=== PATIENT | female | born 1980 | race Hispanic/Latino ===

== ENCOUNTER 2018-06-09 07:33 | Outpatient (CLI) | payer OTHER ==
--- NOTE | 2018-06-09 09:17 | RAD ---
SINGLE VIEW OF THE ABDOMEN: Comparison: None. History: Left upper quadrant abdominal pain for two weeks. FINDINGS: Single view of the abdomen shows a nonspecific, nonobstructed bowel gas pattern. No suspicious calcif ications are seen. IMPRESSION: Unremarkable exam. POS: [facility]
--- NOTE | 2018-06-09 10:15 | ULT ---
COMPLETE ABDOMEN ULTRASOUND: HISTORY: Left upper quadrant abdominal pain. FINDINGS: The liver, spleen, pancreas, adrenal glands, and kidneys appear within normal limits. The spleen eleanor sures 8.8 cm. The common bile duct measures 2.7 mm. The right kidney measures 10.4 cm in length. T he left kidney measures 9.5 cm. The visualized aorta and IVC are within normal limits. IMPRESSION: No acute sonographic abnormality. POS: [facility]
--- NOTE | 2018-06-09 10:43 | RAD ---
CHEST TWO VIEWS: 06/09/2018 HISTORY: Cough. COMPARISON: None. FINDINGS: There are coarse areas of increased linear density in the bilateral perihilar regions. Findings exte nd into bilateral lung apices, with interstitial and ground glass opacity at the lateral and superior aspects of the right upper lobe. There is a focal area of consolidative change in the left lung ape x, with probable associated cavitation. No pleural effusion. IMPRESSION: Abnormal density in the bilateral perihilar regions and in both upper lobes, left greater than right. The finding in the left lung apex demonstrates probable cavitation. The findings are suspicious fo r multifocal infectious pneumonitis. Tuberculosis is a possibility. Clinical correlation and short- term follow-up imaging following treatment thus advised. CODE T-Dr. Morgan made aware via phone by Dr. Collins on the morning of 06/09/2018. POS: [facility]
--- NOTE | 2018-06-09 11:08 | ULT ---
TRANSABDOMINAL AND TRANSVAGINAL PELVIC ULTRASOUND: INDICATIONS: History of epigastric abdominal pain, anemia, and intermittent heavy periods. TECHNIQUE: Hauser-scale, color Doppler, and spectral Doppler images were obtained of the pelvis via a transabdomin al and transvaginal approach. FINDINGS: The uterus measured 8.7 x 4.2 x 6.5 cm and is diffusely heterogeneous. There is a discrete, slightly hyperechoic lesion seen within the intramural space of the anterior uterine body, measuring 2 cm. T he ovaries were not well seen on both the transabdominal and transvaginal examinations. There is non specific mild to moderate free fluid within the pelvis. The endometrial stripe measured approximatel y 6 mm to 9 mm. There was some evidence of intracanal fluid within the endometrial space. A small n abothian cyst, measuring 1 cm, is seen involving the cervix. IMPRESSION: 1. Heterogeneous appearance to the uterus is suspicious for underlying fibroid disease. There is a focal oval hyperechogenic area seen within the intramural space, just subjacent to the suspected junc tional zone. This could reflect a slightly proteinaceous endometrial gland that has invaginated into the intramural space and can be seen with adenomyosis. This also could reflect a slightly fatty int ramural fibroid. Recommend further evaluation with an MRI of the pelvis with and without contrast fo r additional characterization. 2. Nonspecific endometrial canal fluid. This may be related to phase of menstruation. 3. Mild to moderate free fluid in the pelvis is nonspecific. 4. Nonvisualization of the ovaries. POS: [facility]
== END 2018-06-09 07:34 | disposition home or self-care (01) ==
LOC: BICULT 07:33
PROVIDERS: ATTEND Family Medicine
DX: R05 Cough (principal); R10.12 Left upper quadrant pain; R91.8 Other nonspecific abnormal finding of lung field
CPT/HCPCS: 71046; 74018; 76700; 76856

== ENCOUNTER 2021-07-24 08:03 | Outpatient (CLI) | payer BC | END 2021-07-24 08:04 | disposition home or self-care (01) | LOC: BICULT 08:03 | PROVIDERS: ATTEND Nurse Practitioner Family | DX: R10.32 Left lower quadrant pain (principal); D25.9 Leiomyoma of uterus, unspecified; R93.89 Abnormal findings on diagnostic imaging of other specified body structures | CPT/HCPCS: 76856; 93976 ==

== ENCOUNTER 2023-07-20 12:37 | Outpatient (CLI) | payer BC | END 2023-07-20 12:38 | disposition home or self-care (01) | LOC: BICCT 12:37 | PROVIDERS: ATTEND Family Medicine | DX: R31.0 Gross hematuria (principal) | CPT/HCPCS: 74176 ==

== ENCOUNTER 2024-04-23 18:08 | Emergency (ER) | payer BC ==
[2024-04-23 20:03] LABS: Hematocrit 35.7 % (36.0-47.0); Hemoglobin 11.6 g/dL (12.0-16.0); Mean Corpuscular HGB CONC 32.5 g/dL (32.0-36.0); Mean Corpuscular Hemoglobin 28.2 pg (27.0-31.0); Mean Corpuscular Volume 86.9 fL (78.0-98.0); Mean Platelet Volume 9.9 fL (7.4-10.4); Platelet Count 377 10x3/uL (130-400); RBC Distribution Width 12.6 % (11.5-14.5); Red Blood Cell (RBC) Count 4.11 mill/uL (4.20-5.40)
[2024-04-23] MEDS ORDERED: Ketorolac Tromethamine 30 MG (1 mL) VIAL ONE (20:05)
[2024-04-23] MEDS ORDERED: diphenhydrAMINE 50 MG/ML VIAL ONE (20:06)
[2024-04-23] MEDS ORDERED: Metoclopramide HCl 10 MG (2 mL) VIAL ONE (20:06)
[2024-04-23 20:21] LABS: ALT (SGPT) 9 U/L (8-55); AST (SGOT) 18 U/L (5-34); Albumin 3.9 g/dL (3.5-5.0); Alkaline Phosphatase 57 U/L (40-110); Anion Gap 14 mmol/L (10-20); BUN (Urea Nitrogen) 12 mg/dL (7.0-18.7); Bilirubin, Total 0.5 mg/dL (0.2-1.2); Calc. Creatinine Clearance 0 mL/min (70-130); Calcium 8.9 mg/dL (7.8-10.44); Carbon Dioxide 23 mmol/L (22-29); Chloride 108 mmol/L (98-107); Estimated GFR 105; Glucose 95 mg/dL (70-105); Potassium 4.2 mmol/L (3.5-5.1); Protein, Total 6.9 g/dL (6.0-8.3); Sodium 141 mmol/L (136-145)
[2024-04-23 20:23] LABS: Band 2 % (5-11); Hypochromia SLIGHT = 6-15 cells HPF (0-5); Lymphocytes 33 % (21-51); Monocytes 2 % (0-10); Neutrophil 63 % (42-75); Platelet Adequacy Comment Platelets Normal; Polychromasia SLIGHT = 2-3 cells HPF (0-2)
== END 2024-04-23 21:58 | disposition home or self-care (01) ==
LOC: ERS 18:08
DX: G43.909 Migraine, unspecified, not intractable, without status migrainosus (principal)
CPT/HCPCS: 70450; 80053; 85025; 96374; 96375; J1200; J1885; J2765